=== PATIENT | male | born 1940 ===

== ENCOUNTER 2024-08-13 12:11 | Inpatient (IN) | payer OTHER ==
--- NOTE | 2024-08-13 13:05 | RAD REPORT ---
EXAMINATION: CT LUMBAR SPINE WITHOUT CONTRAST CLINICAL INDICATION: Male, 84 years old. PAIN TECHNIQUE: Axial CT images were obtained through the lumbar spine in soft tissue and bone windows wit hout intravenous contrast. Coronal and Sagittal reformatted images were created from the data set. One or more of the following dose reduction techniques were used: Automated exposure control, adjustm ent of the mA and/ or kV according to patient size, and/or iterative reconstruction. Unless otherwise specified, incidental findings do not require dedicated imaging follow-up. COMPARISON: None available FINDINGS: For purposes of this dictation, it is assumed that there are 5 non rib-bearing lumbar type vertebrae, and the most caudal fully segmented lumbar vertebra is labeled L5. ALIGNMENT: The lumbar spine demonstrates normal alignment without scoliosis or spondylolisthesis. BONES: Multilevel anterior wedge compression deformities, most severe at T11, L2, L1, and to lesser e xtent T12, L3, and S1. These are of indeterminate age.. No acute displaced fractures of the posterior elements. DISCS: Multilevel disc height loss, most pronounced at L4-5 and to lesser extent L3-4 more so on the right. LEVELS: No significant spinal canal stenosis. No visualized abnormality within the spinal canal. Vari able degrees of neural foraminal narrowing, up to moderate bilaterally at L3-4 and L4-5. SOFT TISSUE: Multiple left para-aortic calcified lesions largest measuring 2.5 cm, may represent calc ified lymph nodes. Ovoid hypodense 1.9 cm lesion adjacent to the left diaphragmatic neville may represent an enlarged lymph node. Loculated left pleural effusion component. Fusiform is mild dilatio n of the infrarenal abdominal aorta measuring 3.6 cm in greatest caliber. IMPRESSION: Multilevel compression fracture deformities of the lower thoracic and lumbar vertebrae, as well as S1 , of indeterminate age. Please correlate for level to focal pain. Multilevel degenerative changes as above. Enlarged left retroperitoneal lymph node adjacent to the left diaphragmatic neville, could relate to met astatic disease. Other multiple left para-aortic calcified lesions, could represent treated adenopathy. Other incidental findings including infrarenal abdominal aortic 3.6 cm aneurysm, and loculated left p leural effusion component.
[2024-08-13 13:27] LABS: Absolute Eosinophils 0.1 K/uL (0-0.5); Absolute Lymphocytes (CBC) 1.2 K/uL (0.7-4.9); Absolute Monocytes 0.8 K/uL (0.1-1.3); Absolute Neutrophil 5.2 K/uL (1.8-8.0); Basophils % 0.5 % (0-1.3); Eosinophils % 1.1 % (0-4.4); Hematocrit 34.5 % (39.6-49.0); Hemoglobin 11.4 g/dL (13.6-17.9); Lymphocytes % 16.1 % (15.3-44.8); MCH 26.7 pg (27.0-35.0); MCHC 33.1 g/dL (32.0-36.0); MCV 80.7 fL (80-100); MPV 8.2 fL (7.6-11.3); Monocytes % 10.4 % (3.3-12.3); Neutrophils % 71.9 % (41.7-73.7); Platelets 152 thou/uL (152-406); RBC Red Blood Cell Count 4.27 M/uL (4.33-5.43); Red Cell Distribution Width 13.8 % (12.1-15.2)
[2024-08-13 13:40] LABS: Albumin 3.2 g/dL (3.4-5.0); Albumin/Globulin Ratio 0.6 (1.1-1.8); Bilirubin Total 0.5 mg/dL (0.2-1.0); Globulin 5.2 g/dL (2.3-3.5); Protein, Total 8.4 g/dL (6.4-8.2)
[2024-08-13] MEDS ORDERED: NA CHLORIDE 0.9% 250 ML ONE (15:46)
[2024-08-13 16:58] LABS: Specific Gravity 1.009 (1.005-1.030); Sqamous Epithelial None Seen /HPF (None Seen); Urine Bacteria <20 /HPF (<20); Urine Bilirubin NEGATIVE (Negative); Urine Blood Trace (Negative); Urine Clarity Turbid (Clear); Urine Color Light-Yellow (Yellow); Urine Crystals Unidentified Few /HPF (None Seen); Urine Culture Reflex Order NOT NEEDED; Urine Glucose NEGATIVE (Negative); Urine Ketones NEGATIVE (Negative); Urine Microscopic Reflex YN ORDER UMIC; Urine Nitrite NEGATIVE (Negative); Urine Protein NEGATIVE (Negative); Urine RBC <5 /HPF (None Seen); Urine Urobilinogen Normal (Normal); Urine WBC <5 /HPF (<5); Urine Yeast (Budding) Trace /HPF (None Seen)
--- NOTE | 2024-08-13 17:00 | RAD REPORT ---
EXAMINATION: ONE VIEW CHEST XR CLINICAL INDICATION: Male, 84 years old.,COUGH TECHNIQUE: Frontal chest projection is submitted. Examination is limited by patient positioning and t echnique. COMPARISON: 05/08/2019 FINDINGS: Left perihilar and basilar airspace opacification with layering moderate effusion. Right lung is maryjane r. Innumerable small calcified granulomas again seen. Prosthetic aortic valve place. No pneumothorax or right-sided effusion. The heart is normal in size. Mediastinal contours are unremarka ble. IMPRESSION: Left perihilar to basal pleural-parenchymal opacification as above, concerning for pneumonia.
--- NOTE | 2024-08-13 17:06 | EDPHYS ---
Physician Documentation [facility] Name: Zeferino Urban Age: 84 yrs Sex: Male : 1940 Arrival Date: 08/13/2024 Time: 12:11 Bed 25 Private MD: ED Physician Charly Castro HPI: 08/13 16:55 This 84 yrs old Unknown Male presents to ER via Wheelchair with complaints of Back Pain.grecia 16:55 The patient presents with pain that is acute, that is chronic, and decreased range of grecia motion. The symptoms are located in the low back, L3 and lumbar spine. Onset: The symptoms/episode began/occurred 5 day(s) ago. The pain does not radiate. Associated signs and symptoms: The patient has no apparent associated signs or symptoms. The problem was sustained from unknown cause. Modifying factors: The patient symptoms are alleviated by remaining still, the patient symptoms are aggravated by any movement, bending, movement. Severity of symptoms: At their worst the symptoms were moderate, in the emergency department the symptoms are unchanged. The patient has experienced similar episodes in the past, multiple times. Historical: - Allergies: 12:47 No Known Allergies; cm10 - PMHx: 12:47 Prostate Cancer; Congestive heart failure; GERD; cm10 - PSHx: 12:47 Heart Valve; cm10 - Immunization history:: Adult Immunizations up to date. - Infectious Disease History:: Denies. - Social history:: Smoking status: Patient denies any tobacco usage or history of. - Family history:: not pertinent. ROS: 16:57 Constitutional: Negative for fever, chills, and weight loss, Eyes: Negative for injury, grecia pain, redness, and discharge, ENT: Negative for injury, pain, and discharge, Neck: Negative for injury, pain, and swelling, Cardiovascular: Negative for chest pain, palpitations, and edema, Respiratory: Negative for shortness of breath, cough, wheezing, and pleuritic chest pain, Abdomen/GI: Negative for abdominal pain, nausea, vomiting, diarrhea, and constipation, : Negative for injury, bleeding, discharge, and swelling, MS/Extremity: Negative for injury and deformity, Skin: Negative for injury, rash, and discoloration, Psych: Negative for depression, anxiety, suicide ideation, homicidal ideation, and hallucinations, Allergy/Immunology: Negative for hives, rash, and allergies, Endocrine: Negative for neck swelling, polydipsia, polyuria, polyphagia, and marked weight changes, 16:57 Back: Positive for decreased range of motion, pain at rest, pain with movement, of the lumbar area, 16:57 Neuro: Positive for weakness, Exam: 16:57 Constitutional: This is a well developed, well nourished patient who is awake, alert, grecia and in no acute distress. Head/Face: Normocephalic, atraumatic. Eyes: Pupils equal round and reactive to light, extra-ocular motions intact. Lids and lashes normal. Conjunctiva and sclera are non-icteric and not injected. Cornea within normal limits. Periorbital areas with no swelling, redness, or edema. ENT: Nares patent. No nasal discharge, no septal abnormalities noted. Tympanic membranes are normal and external auditory canals are clear. Oropharynx with no redness, swelling, or masses, exudates, or evidence of obstruction, uvula midline. Mucous membranes moist. Neck: Trachea midline, no thyromegaly or masses palpated, and no cervical lymphadenopathy. Supple, full range of motion without nuchal rigidity, or vertebral point tenderness. No Meningismus. Chest/axilla: Normal chest wall appearance and motion. Nontender with no deformity. No lesions are appreciated. Cardiovascular: Regular rate and rhythm with a normal S1 and S2. No gallops, murmurs, or rubs. Normal PMI, no JVD. No pulse deficits. Respiratory: Lungs have equal breath sounds bilaterally, clear to auscultation and percussion. No rales, rhonchi or wheezes noted. No increased work of breathing, no retractions or nasal flaring. Abdomen/GI: Soft, non-tender, with normal bowel sounds. No distension or tympany. No guarding or rebound. No evidence of tenderness throughout. Male : Normal genitalia with no discharge or lesions. Skin: Warm, dry with normal turgor. Normal color with no rashes, no lesions, and no evidence of cellulitis. MS/ Extremity: Pulses equal, no cyanosis. Neurovascular intact. Full, normal range of motion., bilateral aka Neuro: Awake and alert, GCS 15, oriented to person, place, time, and situation. Cranial nerves II-XII grossly intact. Motor strength 5/5 in all extremities. Sensory grossly intact. Cerebellar exam normal. Normal gait. Psych: Awake, alert, with orientation to person, place and time. Behavior, mood, and affect are within normal limits. 16:57 ECG was reviewed by the Attending Physician. 16:57 Back: pain, that is mild, that is moderate, of the lumbar area, ROM is painful, normal spinal alignment noted, CVA tenderness, is absent, muscle spasm, is not present, Vital Signs: 12:45 BP 115 / 78; Pulse 101; Resp 15; Temp 97.5; Pulse Ox 98% on R/A; Weight 65.77 kg; cm10 Height 5 ft. 8 in. ; Pain 8; 08/14 08:13 Temp 97.4(O); cc6 08/13 12:45 Body Mass Index 22.05 (65.77 kg, 172.72 cm) cm10 08/13 12:45 Pain Scale: Adult cm10 MDM: 08/13 12:51 Medical Screening Exam initiated grecia 16:59 Differential diagnosis: chronic back pain, Fatigue Fracture Neoplasm ruptured disc, grecia spinal injury, sprain, vertebral fracture. Data reviewed: vital signs, nurses notes, lab test result(s), EKG, radiologic studies, CT scan, plain films. Consideration of Admission/Observation Patient was admitted/placed on observation. Escalation of care including admission/observation considered. I considered the following discharge prescriptions or medication management in the emergency department Medications were administered in the Emergency Department. See MAR. Independent interpretation of the following test(s) in the Emergency Department EKG: See my EKG interpretation above. Test considered but Not performed: MRI: no mri lumbar spine. Historians other than the Patient: Family Member: son and daughter. Care significantly affected by the following chronic conditions: Congestive Heart Failure, Cancer, gerd. 08/13 12:18 Order name: CBC with Diff; Complete Time: 15:31 [facility] 08/13 12:18 Order name: Comprehensive Metabolic Panel; Complete Time: 15:31 [facility] 08/13 12:18 Order name: Urinalysis w/ reflexes; Complete Time: 18:04 [facility] 08/13 18:54 Order name: Urinalysis w/ reflexes EDKS 08/13 18:54 Order name: Basic Metabolic Panel EDKS 08/13 18:54 Order name: Basic Metabolic Panel EDKS 08/13 18:54 Order name: Basic Metabolic Panel EDMS 08/13 18:54 Order name: Basic Metabolic Panel EDMS 08/13 18:54 Order name: Basic Metabolic Panel EDMS 08/13 18:54 Order name: Basic Metabolic Panel EDMS 08/13 18:54 Order name: CBC with Automated Diff EDMS 08/13 18:54 Order name: CBC with Automated Diff EDMS 08/13 18:54 Order name: CBC with Automated Diff EDMS 08/13 18:54 Order name: CBC with Automated Diff EDMS 08/13 18:54 Order name: CBC with Automated Diff EDMS 08/13 18:54 Order name: CBC with Automated Diff EDMS 08/13 18:54 Order name: Magnesium EDMS 08/13 18:54 Order name: Magnesium EDMS 08/13 18:54 Order name: Magnesium EDMS 08/13 18:54 Order name: Magnesium EDMS 08/13 18:54 Order name: Magnesium EDMS 08/13 18:54 Order name: Magnesium EDMS 08/13 18:54 Order name: Phosphorus EDMS 08/13 18:54 Order name: Phosphorus EDMS 08/13 18:54 Order name: Phosphorus EDMS 08/13 18:54 Order name: Phosphorus EDMS 08/13 18:54 Order name: Phosphorus EDMS 08/13 18:54 Order name: Phosphorus EDMS 08/13 12:18 Order name: CT Lumbar Spine Wo Con; Complete Time: 15:31 grecia 08/13 15:48 Order name: CT Head C Spine; Complete Time: 18:04 grecia 08/13 15:48 Order name: Chest Single View XRAY; Complete Time: 18:04 grecia 08/13 18:59 Order name: Lumbar Spine Wo Con EDMS 08/13 18:59 Order name: Thoracic Spine Wo Contr EDMS 08/13 15:48 Order name: EKG; Complete Time: 15:49 grecia 08/13 18:54 Order name: Physical Therapy Consult EDMS 08/13 18:54 Order name: Speech Therapy Consult EDMS 08/13 15:48 Order name: EKG - Nurse/Tech; Complete Time: 16:40 grecia EC:57 Rate is 87 beats/min. Rhythm is regular. AR interval is normal. QRS interval is normal. grecia QT interval is normal. No Q waves. T waves are Normal. No ST changes noted. Clinical impression: NSR w/ Non-specific ST/T Changes and No evidence of ischemia. Interpreted by me. Reviewed by me. Administered Medications: 16:05 Drug: NS 0.9% IV 250 ml IV at 100 ml/hr once Route: IV; Rate: 100 ml/hr; Site: left iw antecubital; 20:13 Follow up: IV Status: Completed infusion; Infusion continued upon admission cp4 Disposition Summary: 08/13/24 17:05 Hospitalization Ordered Notes: Hospitalization Status: Inpatient Admission grecia Provider: Casey Galindo cha Condition: Fair grecia Problem: new grecia Symptoms: have improved grecia Bed/Room Type: Standard grecia Location: Telemetry/MedSurg (Inpatient)(08/14/24 09:09) 6 Room Assignment: [facility](08/14/24 09:09) 6 Diagnosis - Wedge compression fracture of unspecified thoracic vertebra grecia - Wedge compression fracture of unspecified lumbar vertebra grecia - Malignant neoplasm of prostate - metastatic grecia - Weakness grecia - Unspecified kidney failure grecia - Pleural effusion in other conditions classified elsewhere - left moderate, loculatedcha Forms: - Medication Reconciliation Form grecia - SBAR form grecia - Leadership Thank You Letter grecia Signatures: Dispatcher [employer] EDCharly Larsen MD MD cha Williams, Irene, RN RN iw Odilia Carlson RN RN kb3 Francie Covington 6 Halima Melvin RN RN cm10 Dyan Escalera cp4 Corrections: (The following items were deleted from the chart) 19:13 17:05 Telemetry/MedSurg (Inpatient) [facility] kb3 19:13 17:05 [facility]3 08/14 09:09 0205 19:13 [facility] ER HOLD kb3 bc6 08/14 09:09 0205 19:13 ERHOLD- kb3 6
--- NOTE | 2024-08-13 17:06 | ER ---
Nurse's Notes [facility] Name: Zeferino Urban Age: 84 yrs Sex: Male : 1940 Arrival Date: 08/13/2024 Time: 12:11 Bed 25 Private MD: Diagnosis: Wedge compression fracture of unspecified thoracic vertebra;Wedge compression fracture of unspecified lumbar vertebra;Malignant neoplasm of prostate-metastatic;Weakness;Unspecified kidney failure;Pleural effusion in other conditions classified elsewhere-left moderate, loculated Presentation: 08/13 12:45 Chief complaint: Patient's son or daughter states: Pt has been having increased falls, cm10 back pain and unable to move around like he normally does. Coronavirus screen: Client denies travel out of the [place] in the last 14 days. Ebola Screen: Patient denies travel to an Ebola-affected area in the 21 days before illness onset. Initial Sepsis Screen: Does the patient meet any 2 criteria? No. Patient's initial sepsis screen is negative. Does the patient have a suspected source of infection? No. Patient's initial sepsis screen is negative. Risk Assessment: Do you want to hurt yourself or someone else? Patient reports no desire to harm self or others. Onset of symptoms was August 13, 2024. 12:45 Method Of Arrival: Wheelchair cm10 12:45 Acuity: ANNETTA 3 cm10 Triage Assessment: 12:49 General: Appears in no apparent distress. comfortable, Behavior is calm, cooperative. cm10 Neuro: No deficits noted. Level of Consciousness is awake, alert, obeys commands, Oriented to person, place, time, situation, Appropriate for age. Respiratory: No deficits noted. Airway is patent Respiratory effort is even, unlabored, Respiratory pattern is regular, symmetrical. Historical: - Allergies: 12:47 No Known Allergies; cm10 - PMHx: 12:47 Prostate Cancer; Congestive heart failure; GERD; cm10 - PSHx: 12:47 Heart Valve; cm10 - Immunization history:: Adult Immunizations up to date. - Infectious Disease History:: Denies. - Social history:: Smoking status: Patient denies any tobacco usage or history of. - Family history:: not pertinent. Screenin:10 [facility] ED Fall Risk Assessment (Adult) History of falling in the last 3 months, cp4 including since admission No falls in past 3 months (0 pts) Confusion or Disorientation No (0 pts) Intoxicated or Sedated No (0 pts) Impaired Gait No (0 pts) Mobility Assist Device Used No (0 pt) Altered Elimination No (0 pt) Score/Fall Risk Level 0 - 2 = Low Risk Oriented to surroundings, Maintained a safe environment, Assessed \T\ reinforced patient's understanding of fall precautions, Hourly rounding (assess needs \T\ fall precautionary measures) done. Abuse screen: Denies threats or abuse. Denies injuries from another. Nutritional screening: No deficits noted. Tuberculosis screening: No symptoms or risk factors identified. Assessment: 16:00 General: Appears in no apparent distress. comfortable, Behavior is calm, cooperative. iw Pain: Complains of pain in back. Neuro: Level of Consciousness is awake, alert, obeys commands, Oriented to person, place, time, situation, Moves all extremities. Cardiovascular: Patient's skin is warm and dry. Respiratory: Respiratory effort is even, unlabored, Respiratory pattern is regular, symmetrical. GI: Abdomen is flat, non-distended. Derm: Skin is intact, Skin is dry, Skin is pale. 20:10 General: Appears in no apparent distress. comfortable, Behavior is calm, cooperative, cp4 appropriate for age. Pain: Complains of pain in lumbar area and lumbar spine and L3 Pain does not radiate. Pain currently is 5 out of 10 on a pain scale. Neuro: Level of Consciousness is awake, alert, obeys commands, Oriented to person, place, time, situation. Cardiovascular: Patient's skin is warm and dry. Respiratory: Airway is patent Respiratory effort is even, unlabored. GI: No signs and/or symptoms were reported involving the gastrointestinal system. : No signs and/or symptoms were reported regarding the genitourinary system. EENT: No signs and/or symptoms were reported regarding the EENT system. Derm: No signs and/or symptoms reported regarding the dermatologic system. Musculoskeletal: Reports pain in lumbar area and lumbar spine and L3. Vital Signs: 12:45 BP 115 / 78; Pulse 101; Resp 15; Temp 97.5; Pulse Ox 98% on R/A; Weight 65.77 kg; cm10 Height 5 ft. 8 in. ; Pain 02/15; 08/14 08:13 Temp 97.4(O); cc6 08/13 12:45 Body Mass Index 22.05 (65.77 kg, 172.72 cm) cm10 08/13 12:45 Pain Scale: Adult cm10 ED Course: 08/13 12:15 Patient arrived in ED. al6 12:16 Charly Castro MD is Attending Physician. grecia 12:41 CT Lumbar Spine Wo Con In Process Unspecified. EDMS 12:47 Triage completed. cm10 12:49 Arm band placed on right wrist. Patient placed in waiting room. cm10 13:13 Comprehensive Metabolic Panel Sent. bc6 13:13 CBC with Diff Sent. bc6 13:13 Initial lab(s) drawn, by sd, sent to lab. Inserted saline lock: 22 gauge in left bc6 antecubital area, using aseptic technique. Blood collected. Flushed with 10 mL NS. 15:34 Toshia Owens, RN is Primary Nurse. iw 16:32 Chest Single View XRAY In Process Unspecified. EDMS 16:37 CT Head C Spine In Process Unspecified. EDMS 16:40 Urinalysis w/ reflexes Sent. bc6 16:40 EKG done, by ED staff, reviewed by Charly Castro MD. bc6 17:04 Casey Galindo is Hospitalizing Provider. [facility] 19:00 bed ordered confirmation number..............[id number]. bd 19:28 Primary Nurse role handed off by Toshia Owens, RN rv1 20:10 Dyan Escalera is Primary Nurse. cp4 20:10 Bed in low position. Call light in reach. Side rails up X2. Provided Education on: cp4 admission. 20:10 No provider procedures requiring assistance completed. Patient admitted, IV remains in cp4 place. Administered Medications: 16:05 Drug: NS 0.9% IV 250 ml IV at 100 ml/hr once Route: IV; Rate: 100 ml/hr; Site: left iw antecubital; 20:13 Follow up: IV Status: Completed infusion; Infusion continued upon admission cp4 Medication: 20:10 VIS not applicable for this client. cp4 Outcome: 17:05 Decision to Hospitalize by Provider. grecia 20:10 Admitted to ER Hold. Please see [facility] for further documentation. cp4 20:10 Condition: stable 20:10 Instructed on the need for admit, 08/14 10:04 Patient left the ED. iw Signatures: Dispatcher [employer] EDMS Johanny Mcdonald Corey, MD MD cha Williams, Irene RN RN iw Leonor Fuentes rv1 Francie Covington6 Halima Melvin RN RN cm10 Dyan Escalera cp4 Johanna Graham cc6 Dot Topete al6
--- NOTE | 2024-08-13 17:08 | RAD REPORT ---
EXAM: CT brain without contrast HISTORY: FALLS;Dizziness COMPARISON: None TECHNIQUE: Multiple contiguous axial images were obtained and a CT of the brain without contrast. Sag ittal and coronal reformats were performed. FINDINGS: No evidence of hydrocephalus, intracranial hemorrhage, or extra-axial fluid collection. Moderate diffuse parenchymal atrophy with mild periventricular and deep white matter chronic microva scular ischemic changes present. The calvarium is intact. The visualized paranasal sinuses and mastoid air cells are essentially clear . IMPRESSION: No evidence of acute intracranial abnormality. EXAM: CT of the cervical spine without contrast HISTORY: FALLS;Dizziness COMPARISON: None TECHNIQUE: Multiple contiguous axial images were obtained in a CT of the cervical spine without contr ast. Sagittal and coronal reformats were performed. FINDINGS: The vertebral bodies demonstrate normal height and alignment. No evidence of acute fracture or subluxation.. Mild to moderate multilevel degenerative changes with disc height loss most pronounced at C4-5 and up to moderate bilateral neural foraminal narrowing at C4-5 and C5-6 secondary to uncovertebral joint and facet spurring. No prevertebral soft tissue swelling is seen. The posterior facets are well aligned. Normal alignment of the skull base with the cervical spine is seen. The lung apices are unremarkable. IMPRESSION: No evidence of acute osseous abnormality of the cervical spine. Degenerative changes as above.
[2024-08-13] MEDS ORDERED: ACETAMINOPHEN 325 MG TABLET PO PRN (18:45)
--- NOTE | 2024-08-13 19:05 | P.HP ---
Certification for Inpatient Patient admitted to: Inpatient With expected LOS: >2 Midnights Patient will require the following post-hospital care: None Practitioner: I am a practitioner with admitting privileges, knowledge of patient current condition, hospital course, and medical plan of care. Services: Services provided to patient in accordance with Admission requirements found in Title 42 Section 412.3 of the Code of Federal Regulations Patient History Date of Service: 08/13/24 Reason for admission: Weakness History of Present Illness: Zeferino Urban is an 84 year old male with Pmhx Aortic valve replacement, CHF EF 20%, prostate cancer who presents to the ED with increased weakness and back pain for the past weak. Family at the bedside reports Zeferino ambulates with a walker to the bathroom independently but has not been able to walk the last three days. He recently started with home health who was unable to obtain a urine sample and requested to come to the ER to check for a UTI. On evaluation, he has no complaints of pain, lung sounds clear, vital signs stable. Laboratory evaluation significant for sodium 134, BUN/creatinine 26/1.38, GFR 50. CT head and cervical spine reports "The vertebral bodies demonstrate normal height and alignment. No evidence of acute fracture or subluxation. Mild to moderate multilevel degenerative changes with disc height loss most pronounced at C4-5 and up to moderate bilateral neural foraminal narrowing at C4-5 and C5-6 secondary to uncovertebral joint and facet spurring. No prevertebral soft tissue swelling is seen. The posterior facets are well aligned. Normal alignment of the skull base with the cervical spine is seen. CT lumbar spine reports "Multilevel compression fracture deformities of the lower thoracic and lumbar vertebrae, as well as S1, of indeterminate age. Please correlate for level to focal pain. Multilevel degenerative changes as above. Enlarged left retroperitoneal lymph node adjacent to the left diaphragmatic neville, could relate to metastatic disease. Other multiple left para-aortic calcified lesions, could represent treated adenopathy. Other incidental findings including infrarenal abdominal aortic 3.6 cm aneurysm, and loculated left pleural effusion component." Chest x-ray reports "Left perihilar to basal pleural-parenchymal opacification as above, concerning for pneumonia" Zeferino will be admitted to hospitalist service for further evaluation of multilevel compression fractures. - Past Medical/Surgical History -: Prostate cancer -: GERD -: CHF -: Aortic valve replacement - Social History Smoking Status: Never smoker Alcohol use: No CD- Drugs: No Review of Systems Other: Per HPI Physical Examination - Physical Exam General: Alert, In no apparent distress, Oriented x1 HEENT: Atraumatic, Normocephalic Neck: Supple, 2+ carotid pulse no bruit Respiratory: Clear to auscultation bilaterally, Normal air movement Cardiovascular: Normal pulses, Regular rate/rhythm, Normal S1 S2 Capillary refill: <2 Seconds Gastrointestinal: Normal bowel sounds, Soft and benign Musculoskeletal: No clubbing Integumentary: No rashes Neurological: Normal speech - Studies Laboratory Data (last 24 hrs) 08/13/24 08/13/24 13:10 13:10 WBC 7.30 Hgb 11.4 L Hct 34.5 L Plt Count 152 Sodium 134 L Potassium 4.0 BUN 26 H Creatinine 1.38 H Glucose 100 Total Bilirubin 0.5 AST 17 ALT 15 L Alkaline Phosphatase 119 H Assessment and Plan - Plan Assessment and Plan Weakness Frequent falls Multilevel compression fractures -MRI spine ordered -Pain control -Physical therapy -Speech therapy -Supportive care Left loculated pleural effusion -On room air EDWIGE -BUN/creatinine 26/1.38, GFR 50 -Gentle IVF CHF Aortic valve replacement -Continuous telemetry -Continue home medication -Monitor IVF use carefully DVT PPx heparin DNR LOS 2 to 3 days Discharge Plan: Other (Inpatient rehab) Plan to discharge in: 72 Hours - Advance Directives Does patient have a Living Will: No Does patient have a Durable POA for Healthcare: No
[2024-08-13] MEDS ORDERED: MORPHINE 2 MG/ML SYR IV PRN (19:41)
[2024-08-13] MEDS ORDERED: LORAZEPAM 1 MG TABLET ONE (19:54)
[2024-08-13] MEDS ORDERED: NA CHLORIDE 0.9% 1,000 ML ONE (19:54)
[2024-08-13] MEDS: NA CHLORIDE 0.9% 500 ML IV SCH (20:00)
[2024-08-13] MEDS: LORAZEPAM 1 MG TABLET PO ONE (20:00)
[2024-08-13 23:27] VITALS: BMI 21.2
[2024-08-14] MEDS: HEPARIN 5000 UNIT/ML 1 ML VIAL SQ SCH (01:00)
[2024-08-14] MEDS ORDERED: HEPARIN 5000 UNIT/ML 1 ML VIAL ONE (01:29)
[2024-08-14 05:23] LABS: Absolute Basophils 0.1 K/uL (0-0.5); Absolute Eosinophils 0.1 K/uL (0-0.5); Absolute Lymphocytes (CBC) 1.1 K/uL (0.7-4.9); Absolute Monocytes 0.7 K/uL (0.1-1.3); Absolute Neutrophil 3.7 K/uL (1.8-8.0); Eosinophils % 2.4 % (0-4.4); Hematocrit 30.5 % (39.6-49.0); Hemoglobin 10.1 g/dL (13.6-17.9); Lymphocytes % 19.2 % (15.3-44.8); MCH 26.8 pg (27.0-35.0); MCHC 33.2 g/dL (32.0-36.0); MCV 80.8 fL (80-100); MPV 8.3 fL (7.6-11.3); Monocytes % 12.2 % (3.3-12.3); Neutrophils % 65.2 % (41.7-73.7); Platelets 126 thou/uL (152-406); RBC Red Blood Cell Count 3.78 M/uL (4.33-5.43); Red Cell Distribution Width 14.1 % (12.1-15.2)
[2024-08-14 05:36] LABS: Anion Gap 8.7 mEq/L (5.0-15.0); Magnesium 2.2 mg/dL (1.6-2.4); Phosphorus 3.7 mg/dL (2.5-4.9); Potassium 3.7 mEq/L (3.5-5.1)
[2024-08-14] MEDS: POTASSIUM CL SA 10 MEQ TAB PO ONE (05:56)
[2024-08-14] MEDS ORDERED: POTASSIUM CL SA 10 MEQ TAB PO ONE (06:25)
--- NOTE | 2024-08-14 11:27 | EKG ---
Test Date: 2024-08-13 Test Time: 16:11:12 [employer]ugboat Dispatcher: KVNG MEASUREMENT RESULTS: Intervals: Rate: 87 NV: 156 QRSD: 148 QT: 412 QTc: 495 [place]: P: 55 NV: 156 QRS: 55 T: 73 INTERPRETIVE STATEMENTS: Normal sinus rhythm Left bundle branch block Abnormal ECG Compared to ECG 05/08/2019 18:10:02 Atrial abnormality no longer present Electronically Signed On 08-14-24 11:25:48 CYTOPATHOLOGY TECHNOLOGIST by Cesar Grant
[2024-08-14 12:50] VITALS: O2SAT 97
--- NOTE | 2024-08-14 15:38 | P.PN ---
Date of Service: 08/14/24 Subjective Awake with family at the bedside Family refusing MRI Physical therapy recommend SNF placement for slower rehab ROS 10 point ROS as noted above, otherwise negative Physical Exam General: Alert and Oriented x1, NAD HEENT: Atraumatic, Normocephalic Neck: Supple, 2+ carotid pulse no bruit Respiratory: Clear to auscultation bilaterally, Normal air movement Cardiovascular: Normal pulses, RRR, Normal S1 S2 Capillary refill: <2 Seconds Gastrointestinal: Normal bowel sounds, Soft and benign on palpation Musculoskeletal: No clubbing Integumentary: No rashes Neurological: Normal speech Vitals Reviewed Problem list Weakness Frequent falls Multilevel compression fractures Left loculated pleural effusion EDWIGE CHF Aortic valve replacement Assessment and Plan Weakness Frequent falls Multilevel compression fractures Dysphagia -MRI spine ordered -Pain control -Physical therapy- recommend SNF -Speech therapy-minced/moist with thin liquid via straw -Supportive care Left loculated pleural effusion -On room air -Oxygen support PRN EDWIGE -BUN/creatinine 22/1.14, GFR 63 -Gentle IVF CHF Aortic valve replacement -Continuous telemetry -Continue home medication -Monitor IVF use carefully DVT PPx heparin DNR LOS 2 to 3 days Discharge Plan: Other (Inpatient rehab) Plan to discharge in: 72 Hours
[2024-08-14] MEDS: LORAZEPAM 1 MG TABLET PO SCH (22:50)
[2024-08-15 07:15] LABS: Anion Gap 9.8 mEq/L (5.0-15.0); Magnesium 2.2 mg/dL (1.6-2.4); Phosphorus 3.7 mg/dL (2.5-4.9); Potassium 3.8 mEq/L (3.5-5.1)
[2024-08-15 07:35] LABS: Absolute Eosinophils 0.1 K/uL (0-0.5); Absolute Lymphocytes (CBC) 1.2 K/uL (0.7-4.9); Absolute Monocytes 0.9 K/uL (0.1-1.3); Absolute Neutrophil 5.1 K/uL (1.8-8.0); Basophils % 0.6 % (0-1.3); Hemoglobin 11.6 g/dL (13.6-17.9); Lymphocytes % 16.7 % (15.3-44.8); MCH 26.4 pg (27.0-35.0); MCHC 32.3 g/dL (32.0-36.0); MCV 81.8 fL (80-100); MPV 7.8 fL (7.6-11.3); Monocytes % 12.1 % (3.3-12.3); Neutrophils % 69.6 % (41.7-73.7); Platelets 136 thou/uL (152-406)
[2024-08-15] MEDS ORDERED: HOME MED 1 EA UNK (Omeprazole [Omeprazole] 20 MG Capsule.Dr) PO SCH (09:00)
[2024-08-15] MEDS: MAXZIDE (HCTZ 25/TRIAMTERENE 37.5MG) TAB PO SCH (09:00)
[2024-08-15] MEDS: PANTOPRAZOLE 40MG TABLET PO SCH (09:22)
[2024-08-15 12:52] VITALS: TEMP 98
--- NOTE | 2024-08-15 16:12 | P.DS ---
Admission Date: 08/13/24 Discharge Date: 08/15/24 Disposition: HOSPICE-HOME Discharge Condition: GOOD Reason for Admission: Weakness Brief History of Present Illness: Zeferino Urban is an 84 year old male with Pmhx Aortic valve replacement, CHF EF 20%, prostate cancer who presents to the ED with increased weakness and back pain for the past weak. Family at the bedside reports Zeferino ambulates with a walker to the bathroom independently but has not been able to walk the last three days. He recently started with home health who was unable to obtain a urine sample and requested to come to the ER to check for a UTI. On evaluation, he has no complaints of pain, lung sounds clear, vital signs stable. Laboratory evaluation significant for sodium 134, BUN/creatinine 26/1.38, GFR 50. CT head and cervical spine reports "The vertebral bodies demonstrate normal height and alignment. No evidence of acute fracture or subluxation. Mild to moderate multilevel degenerative changes with disc height loss most pronounced at C4-5 and up to moderate bilateral neural foraminal narrowing at C4-5 and C5-6 secondary to uncovertebral joint and facet spurring. No prevertebral soft tissue swelling is seen. The posterior facets are well aligned. Normal alignment of the skull base with the cervical spine is seen. CT lumbar spine reports "Multilevel compression fracture deformities of the lower thoracic and lumbar vertebrae, as well as S1, of indeterminate age. Please correlate for level to focal pain. Multilevel degenerative changes as above. Enlarged left retroperitoneal lymph node adjacent to the left diaphragmatic neville, could relate to metastatic disease. Other multiple left para-aortic calcified lesions, could represent treated adenopathy. Other incidental findings including infrarenal abdominal aortic 3.6 cm aneurysm, and loculated left pleural effusion component." Chest x-ray reports "Left perihilar to basal pleural-parenchymal opacification as above, concerning for pneumonia" Zeferino will be admitted to hospitalist service for further evaluation of multilevel compression fractures. Hospital Course: Patient was admitted and treated for the following: Advanced Dementia associate with Weakness and Frequent falls Multilevel compression fractures Dysphagia -MRI spine unable to obtain with patient's current mentation -Pain controlled -Physical therapy evaluated reporting decreased endurance and limited to dementia -Speech therapy-minced/moist with thin liquid via straw -Supportive care provided -Discussed hospice with the family who believes this is the best route for continued care at home. Left loculated pleural effusion -On room air, able to maintain satisfactory oxygenation while on RA this admission EDWIGE -BUN/creatinine supported with gentle IVF CHF Aortic valve replacement -Continuous telemetry -Continued home medication -Monitored IVF use carefully On 08/15/24, Zeferino was seen on morning rounds and deemed hemodynamically stable for discharge with family and home hospice support. Prescription of Auxvasse was called into the pharmacy. Physical Exam General: Alert and Oriented x1, NAD, Confused but cooperative Neck: Supple, 2+ carotid pulse no bruit Respiratory: Clear BBS, Normal air movement, on RA Cardiovascular: mild tachycardia, Normal S1 S2, present Capillary refill: <2 Seconds Gastrointestinal: Normal active bowel sounds, Soft on palpation Musculoskeletal: No clubbing Integumentary: No rashes Neurological: Normal speech, confusion Vital Signs/Physical Exam: Temp Pulse Resp BP Pulse Ox 98.0 F 98 H 22 H 99/66 96 08/15/24 12:00 08/15/24 12:00 08/15/24 12:00 08/15/24 12:00 08/15/24 12:00 Laboratory Data at Discharge: WBC 7.30 thou/uL (4.3-10.9) 08/15/24 07:23 Hgb 11.6 g/dL (13.6-17.9) L D 08/15/24 07:23 Hct 36.0 % (39.6-49.0) L 08/15/24 07:23 Plt Count 136 thou/uL (152-406) L 08/15/24 07:23 Sodium 132 mEq/L (136-145) L 08/15/24 06:39 Potassium 3.8 mEq/L (3.5-5.1) 08/15/24 06:39 BUN 30 mg/dL (7-18) H 08/15/24 06:39 Creatinine 1.27 mg/dL (0.70-1.30) 08/15/24 06:39 Glucose 99 mg/dL (74-106) 08/15/24 06:39 Phosphorus 3.7 mg/dL (2.5-4.9) 08/15/24 06:39 Magnesium 2.2 mg/dL (1.6-2.4) 08/15/24 06:39 Total Bilirubin 0.5 mg/dL (0.2-1.0) 08/13/24 13:10 AST 17 U/L (15-37) 08/13/24 13:10 ALT 15 U/L (16-61) L 08/13/24 13:10 Alkaline Phosphatase 119 U/L (45-117) H 08/13/24 13:10 Home Medications: Lorazepam [Ativan] 1 mg PO DAILY 08/13/24 Omeprazole 20 mg PO DAILY 08/13/24 Triamterene/Hydrochlorothiazid [Triamterene-Hctz 37.5-25 mg Tb] 0.5 each PO DAILY 08/13/24 Hydrocodone 5/APAP 325 [[place] 5/325] 1 tab PO Q6H PRN #15 tab 08/15/24 New Medications: Hydrocodone 5/APAP 325 [[place] 5/325] 1 tab PO Q6H PRN #15 tab PRN Reason: Pain Physician Discharge Instructions: 1. Please call and schedule a follow-up appointment with your PCP in 3-5 days - Please follow-up with your PCP for medication refills/adjustments 2. Continue minced and moist diet and thin liquids via straw with no overt s/s of aspiration 3. activity restrictions fall precautions 4. Return to the ED if symptoms worsen Diet: Regular Followup: Willie Simon MD [Primary Care Provider] - 2-3 Days
[2024-08-15 16:31] VITALS: BP 101/70
== END 2024-08-15 15:00 | disposition hospice, home (50) | DRG 542 ==
LOC: ER 12:11 → ERHOLD 18:45 → 4TH 08-14 09:42
PROVIDERS: ADMIT Internal Medicine; ATTEND Internal Medicine
DX: M48.54XA Collapsed vertebra, not elsewhere classified, thoracic region, initial encounter for fracture (principal); J18.9 Pneumonia, unspecified organism; N17.9 Acute kidney failure, unspecified; J91.8 Pleural effusion in other conditions classified elsewhere; K21.9 Gastro-esophageal reflux disease without esophagitis; M48.56XA Collapsed vertebra, not elsewhere classified, lumbar region, initial encounter for fracture; I50.9 Heart failure, unspecified; F03.90 Unspecified dementia, unspecified severity, without behavioral disturbance, psychotic disturbance, mood disturbance, and anxiety; R13.10 Dysphagia, unspecified; R29.6 Repeated falls; Z66 Do not resuscitate; Z91.81 History of falling; Z95.2 Presence of prosthetic heart valve; Z85.46 Personal history of malignant neoplasm of prostate
CPT/HCPCS: 36415; 70450; 71045; 72125; 72131; 80048; 80053; 81001; 83735; 84100; 85025; 92526; 92610; 93005; 96365; 96366; 97110; 97161; 97530; 99285; J1644; J7030; J7050